=== PATIENT | female | born 1965 | race Caucasian/White ===

== ENCOUNTER 2016-12-14 00:20 | Emergency (ER) | payer OTHER ==
[~2016-12-14] VITALS: Ht 172.7 cm; Wt 112.7 kg
[~2016-12-14 00:20] MED LIST: ABILIFY10 MG PO; ASPIRIN81 M1; Aspirin E.C. PO; BACTRIM,SEPT1 TABLET PO; BUSPAR10 M1 PO; CARAFATE1 GM PO; CIPRO250 MG PO; CIPRO500 MG PO; COPAXONE20 MG/KIT IM; COPAXONE20 MG/KIT SC; COPAXONE20 MG/KIT SQ; COPAXONE40 MG/1 ML SC; COPAXONE40 MG/1 ML SQ; CYMBALTA60 MG PO; DIAZEPAM5 MG PO; DITROPAN XL10 MG PO; DITROPAN XL5 MG PO; ELAVIL50 MG PO; ENDOCET 5-3251 EACH PO; FLEXERIL10 MG PO; IMODIUM MS REL1 EACH PO; INDERAL LA160 MG PO; Inderal LA PO; KEFLEX500 MG PO; LEVAQUIN500 MG PO; LORTAB 5-325 M1 EACH PO; MAXALT10 MG; MOTRIN800 MG PO; NAPROSYN500 MG PO; NAPROXEN500 MG PO; NEURONTIN100 MG PO; NEURONTIN300 MG PO; NEURONTIN600 MG PO; NEXIUM40 MG PO; NORCO 5/3251 TABLET PO; OXYBUTYNIN CHLO10 MG PO; PERCOCET 5/31 TABLET PO; PROPRANOLOL HC160 MG PO; TYLENOL PM1 CAPLET PO; Tylenol PM PO; VICODIN,LORT1 TABLET PO; VITAMIN D2000 UNI1 PO; Xanax PO
[2016-12-14 01:07] LABS: MCH 28.7 PG (29.0-34.0); MCHC 34.3 G/DL (30.0-36.0); MCV 83.7 FL (83-99); MEAN PLAT.VOLUME 9.8 uM^3 (9.5-12.4); PLATELET COUNT 220 K/uL (156-360); RBC DIS.WIDTH-CV 12.9 % (11.8-14.6); RBC DIS.WIDTH-SD 38.8 % (39-53); RED BLOOD COUNT 5.02 M/uL (3.80-5.20); WHITE BLOOD COUNT 6.6 K/uL (4.1-10.2)
[2016-12-14 01:50] LABS: CHLORIDE 108 mEq/L (99-109); POTASSIUM 3.4 mEq/L (3.7-5.4); SODIUM 143 mEq/L (136-147)
[2016-12-14 01:52] LABS: GLUCOSE 105 mg/dL (70-99)
[2016-12-14 01:53] LABS: ANION GAP 10 MEQ/L (2-14)
[2016-12-14 01:56] LABS: GFR ESTIMATE (CALCULATED) > 59 mL/min/
[2016-12-14 01:57] LABS: UREA NITROGEN (BUN) 14 mg/dL (9-23)
[2016-12-14 02:24] VITALS: BP 132/86
== END 2016-12-14 02:25 | disposition home or self-care (01) ==
LOC: EME 00:20
PROVIDERS: Emergency Medicine
DX: R25.2 Cramp and spasm (principal); G35 Multiple sclerosis; Z87.442 Personal history of urinary calculi; Z86.718 Personal history of other venous thrombosis and embolism
CPT/HCPCS: 80048; 85027; 93971; 99281; 99284

== ENCOUNTER 2017-07-30 04:45 | Emergency (ER) | payer OTHER ==
[~2017-07-30] VITALS: Ht 170.2 cm; Wt 107.9 kg
[2017-07-30 05:38] LABS: EOSINOPHIL (%) 4.7 % (0-5); EOSINOPHIL COUNT 0.3 K/uL (0-0.3); HEMATOCRIT 44.6 % (36.0-46.0); IMMATURE GRANULOCYTE (%) 0.2 % (0.0-0.7); INSTRUMENT ABS NEUTROPHIL CT 2.9 K/uL; LYMPHOCYTE COUNT 1.6 K/uL (1.0-2.8); MCH 27.8 PG (29.0-34.0); MCHC 32.3 G/DL (30.0-36.0); MCV 86.1 FL (83-99); MEAN PLAT.VOLUME 10.1 uM^3 (9.5-12.4); MONOCYTE (%) 8.3 % (3-12); MONOCYTE COUNT 0.4 K/uL (0-0.8); NEUTROPHIL (%) 55.4 % (45-76); NEUTROPHIL COUNT 2.9 K/uL (1.8-6.4); PLATELET COUNT 217 K/uL (156-360); RBC DIS.WIDTH-CV 12.7 % (11.8-14.6); RBC DIS.WIDTH-SD 39.8 % (39-53); RED BLOOD COUNT 5.18 M/uL (3.80-5.20); WHITE BLOOD COUNT 5.3 K/uL (4.1-10.2)
[2017-07-30 05:45] LABS: CHLORIDE 104 mEq/L (99-109); POTASSIUM 4.5 mEq/L (3.7-5.4); SODIUM 142 mEq/L (136-147)
[2017-07-30 05:47] LABS: GLUCOSE 103 mg/dL (70-99)
[2017-07-30 05:48] LABS: ANION GAP 8 MEQ/L (2-14)
[2017-07-30 05:49] LABS: TOTAL BILIRUBIN 0.5 mg/dL (0.0-1.0)
[2017-07-30 05:50] LABS: ALKALINE PHOSPHATASE 72 IU/L (3-129)
[2017-07-30 05:51] LABS: GFR ESTIMATE (CALCULATED) > 59 mL/min/
[2017-07-30 05:52] LABS: UREA NITROGEN (BUN) 10 mg/dL (9-23)
[2017-07-30 06:30] LABS: TROP-I INTERPRETATION NEGATIVE; TROPONIN-I < 0.01 ng/mL (0.0-0.30)
[2017-07-30 07:37] VITALS: BP 132/85
== END 2017-07-30 07:37 | disposition home or self-care (01) ==
LOC: EME 04:45
PROVIDERS: Emergency Medicine
DX: R55 Syncope and collapse (principal); G35 Multiple sclerosis; F32.9 Major depressive disorder, single episode, unspecified; F41.9 Anxiety disorder, unspecified; Z87.442 Personal history of urinary calculi; Z86.718 Personal history of other venous thrombosis and embolism; Z88.8 Allergy status to other drugs, medicaments and biological substances
CPT/HCPCS: 70450; 71020; 80053; 84484; 85025; 85379; 93005; 99281; 99284

== ENCOUNTER 2018-02-22 12:08 | Emergency (ER) | payer OTHER ==
[~2018-02-22] VITALS: Ht 170.2 cm; Wt 109.9 kg
[2018-02-22 12:28] LABS: APPEARANCE CLOUDY ((CLEAR)); BILIRUBIN NEGATIVE; BLOOD SMALL; COLOR YELLOW ((YELLOW)); GLUCOSE (STRIP) NEGATIVE; KETONES NEGATIVE; LEUKOCYTES LARGE; NITRITE NEGATIVE; PROTEIN (STRIP) 100; SPECIFIC GRAVITY 1.014 (1.000-1.030); UROBILINOGEN 0.2 MG/DL (0.2-1.0)
[2018-02-22 13:30] LABS: EPITHELIAL CELLS 1+ /HPF; MUCUS NONE SEEN /LPF; RED BLOOD CELLS RARE /HPF (0-5); WHITE BLOOD CELLS TNTC /HPF (0-5)
[2018-02-22 13:31] LABS: BACTERIA 1+ /HPF; UCUL ADDED? YES
[2018-02-22 13:38] LABS: HEMOGLOBIN 15.1 G/DL (11.9-15.5); MCH 28.6 PG (29.0-34.0); MCHC 33.6 G/DL (30.0-36.0); MCV 85.2 FL (83-99); PLATELET COUNT 243 K/uL (156-360); RBC DIS.WIDTH-CV 12.2 % (11.8-14.6); RBC DIS.WIDTH-SD 37.7 % (39-53); RED BLOOD COUNT 5.28 M/uL (3.80-5.20); WHITE BLOOD COUNT 6.7 K/uL (4.1-10.2)
[2018-02-22 14:04] LABS: ALBUMIN 4.3 G/DL (3.2-4.8); CHLORIDE 104 MEQ/L (99-109); SODIUM 141 MEQ/L (136-147); TOTAL BILIRUBIN 0.6 MG/DL (0.0-1.0)
[2018-02-22 14:09] LABS: ALKALINE PHOSPHATASE 61 IU/L (3-129); ALT (GPT) 18 IU/L (3-49); AST (GOT) 16 IU/L (2-34); CREATININE 0.8 MG/DL (0.6-1.3); GFR ESTIMATE (CALCULATED) > 59 mL/min/; GLUCOSE 104 mg/dL (70-99); LIPASE 8 U/L (1.0-51.0); TOTAL PROTEIN 7.1 G/DL (6.4-8.3); UREA NITROGEN (BUN) 12 mg/dL (9-23)
[2018-02-22 14:11] LABS: QUANTITATIVE HCG < 4.0 MIU/ML
[2018-02-22] MEDS ORDERED: MACROBID100 MG PO (15:22)
[2018-02-22 15:58] VITALS: BP 114/68
== END 2018-02-22 15:59 | disposition home or self-care (01) ==
LOC: EME 12:08
DX: N39.0 Urinary tract infection, site not specified (principal); R10.31 Right lower quadrant pain; Z87.442 Personal history of urinary calculi; G35 Multiple sclerosis; F41.9 Anxiety disorder, unspecified; F32.9 Major depressive disorder, single episode, unspecified; Z86.718 Personal history of other venous thrombosis and embolism; Z90.49 Acquired absence of other specified parts of digestive tract; Z90.710 Acquired absence of both cervix and uterus; Z88.0 Allergy status to penicillin; Z88.5 Allergy status to narcotic agent; Z88.8 Allergy status to other drugs, medicaments and biological substances
CPT/HCPCS: 74176; 80048; 80053; 81003; 83690; 84702; 85027; 87086; 99281; 99284; J2405; J3010; J7030